=== PATIENT | female | born 1940 | race Caucasian/White ===

== ENCOUNTER 2023-05-28 10:09 | Observation (INO) | payer MEDICARE, SELFPAY ==
[2023-05-28 10:12] VITALS: BP 149/90; PULSE 72; RESP 14; TEMP 36.6; O2SAT 94; BMI 27.3
--- NOTE | 2023-05-28 10:14 | CT_ITS ---
STUDY: CTA HEAD AND NECK WITH CONTRAST REASON FOR EXAM: Female, 82 years old. Confusion -- PLEASE DICTATE NON CONTRAST BRAIN ALSO RADIATION DOSAGE (If Supplied By Facility): CTDIvol = ( 25.53 ) mGy, DLP = ( 1381.74 ) mGycm TECHNIQUE: CT angiography was performed with a multi-detector CT scanner. Data acquisition was obtained from the skull base through the vertex following intravenous administration of IV 100mL [id number]-[id number]. MIP images were reconstructed from the axial data set. Post-processing of the angiographic images was performed, with multiplanar reformation and 3D reconstruction. Individualized dose optimization techniques were used for this CT. COMPARISON: No relevant priors. FINDINGS: Normal bilateral petrous carotid arteries. There is calcified plaque formation of the right cavernous carotid artery, without a cross-sectional luminal stenosis. Normal left cavernous carotid artery with a normal supraclinoid bifurcation. Normal right A1 segments of the anterior cerebral artery. Normal left A1 segments of the anterior cerebral artery. Normal intact anterior communicating artery (ACOM). Normal bilateral A2 segments of the anterior cerebral arteries. Normal right M1 and M2 segments of the middle cerebral arteries, with a normal M1 bifurcation. Normal left M1 and M2 segments of the middle cerebral arteries, with a normal M1 bifurcation. Normal right posterior communicating artery (PCOM). Normal left posterior communicating artery (PCOM). Normal bilateral vertebral arteries. Normal basilar artery with a normal basilar bifurcation. The visualized bilateral superior cerebellar (SCA) arteries are normal. Normal bilateral P1, P2 and visualized P3 segments of the posterior cerebral arteries. There is no demonstrated aneurysm of the [place]. Cerebral atrophy. Hyperostosis frontalis interna. Decreased attenuation in the periventricular distribution suggestive of small vessel disease. AORTIC ARCH: There is atherosclerotic calcific plaque formation of the aortic arch and great vessels arising from the aortic arch, without a hemodynamically significant stenosis. There is a normal origin of the brachiocephalic, left common carotid, and left subclavian arteries. Atherosclerotic calcific plaque at the origin of the left subclavian artery and right brachiocephalic artery. RIGHT CAROTID ARTERIES: Normal right common carotid artery (CCA). Normal right common carotid bulb. Normal origin of the right internal carotid (ICA) artery without a hemodynamically significant stenosis. Normal visualized cervical portion of the right internal carotid artery. Normal origin of the right external carotid artery (ECA). LEFT CAROTID ARTERIES: Normal left common carotid artery (CCA). Normal left common carotid bulb. There is mild atherosclerotic plaque formation of the origin of the left internal carotid artery with less than 50% cross sectional diameter stenosis. Normal visualized cervical portion of the left internal carotid artery. Normal origin of the left external carotid artery (ECA). VERTEBRAL ARTERIES: Normal bilateral vertebral arteries. CT/CTA Head AND Neck W/ Contrast IMPRESSION: Minimal calcific plaque at the origin of the left internal carotid artery. Cerebral atrophy. Electronically Signed: Miky Carter MD at 11:34 EST ,
--- NOTE | 2023-05-28 10:14 | EKG12_ITS ---
Test Reason : CONFUSED Blood Pressure : / mmHG Vent. Rate : 070 BPM Atrial Rate : 070 BPM P-R Int : 174 ms QRS Dur : 070 ms QT Int : 420 ms P-R-T Axes : 033 -56 051 degrees QTc Int : 453 ms Normal sinus rhythm with sinus arrhythmia Left anterior fascicular block Abnormal ECG Confirmed by Sathya Bailey ([id number]), newspaper copy editor OPAL STOLL ([id number]) on 05/29/2023 8:00:00 AM Referred By: Confirmed By:Sathya Bailey
--- NOTE | 2023-05-28 10:15 | EX.ED.DYSGE1 ---
HPI History of Present Illness Chief Complaint: Confusion Detail of Chief Complaint: Confusion Informant: patient and family Narrative Narrative: Patient presents to the emergency department with complaint of confusion that patient noticed yesterday. Patient states that she is here because she does not know what she is doing. She has a hard time explaining how she is confused. She denies any focal weakness. She denies headache. She denies falls. She denies recent illness. Patient's family member spoke with her last night after not answering a text for 4 hours and she seemed relatively at baseline. Patient denies chest pain or shortness of breath. She denies abdominal pain. She denies vomiting or diarrhea. She denies urinary symptoms. Patient unable to answer what year it is or who the president is which is unusual per family member as patient likes politics. PFSH PFS Allergy/AdvReac Type Severity Reaction Status Date / Time No Known Allergies Allergy Verified 05/28/23 10:14 ROS ROS ED Review of Systems ROS Unobtainable: other Constitutional Constitutional ED: Reports lethargy; Denies chills, fever(s), sweats or weight loss Eyes Eyes: Denies blurry vision, change in vision or diplopia ENT ENT ED: Denies rhinorrhea or sore throat Cardiovascular Cardiovascular: Denies chest pain, orthopnea or racing heartbeat Respiratory/Chest Respiratory/Chest: Denies cough, dyspnea, dyspnea on exertion, orthopnea or sputum Gastrointestinal Gastrointestinal: Denies abdominal pain, diarrhea, nausea or vomiting Genitourinary Genitourinary ED: Denies dysuria, hematuria or urinary frequency Musculoskeletal Musculoskeletal: Denies arthralgias, back pain, myalgias or neck pain Integumentary Denies abscess, Abrasions or rash Neurologic Neurologic: Reports other Details: Confusion ; Denies headache(s) or weakness Psychiatric Psychiatric: Denies anxiety, depression or suicidal thoughts Endocrine Endocrinology: Denies polydipsia, polyphagia or polyuria Hematologic/Lymphatic Hematologic/Lymphatic: Denies easy bleeding, easy bruising or lymphadenopathy Allergic/Immunologic Allergic/Immunologic ED: Denies mouth swelling, tongue swelling or urticaria EXAM Physical Exam Const Vital Signs: 05/28/23 10:12 05/28/23 12:15 Temperature 97.9 F Temperature Source Temporal Pulse Rate 72 65 Respiratory Rate 14 16 Blood Pressure 149/90 H 169/58 H Blood Pressure Mean 109 95 Pulse Ox 94 94 Oxygen Delivery Method Room Air Room Air Positive well nourished and well developed General Appearance ED: well developed and NAD HEENT Reports TM's clear and moist mucous membranes normocephalic and atraumatic; Negative for trauma or tenderness Tympanic Membrane ED: Yes TM's clear Eyes PERRL and EOMs intact bilaterally General Eye ED: Negative for pale conjunctiva or scleral icterus Neck no lymphadenopathy, supple and no JVD General: Negative for tenderness Chest Wall inspection of chest normal and palpation of chest normal Chest: Negative for tenderness Resp normal respiratory effort and clear to auscultation bilaterally Effort and Inspection: Negative for respiratory distress or pain with movement Auscultation: Negative for rhonchi, wheezes or diminished lung sounds Cardio regular rate, regular rhythm, S1 normal heart sound, S2 normal heart sound and no murmurs Peripheral Pulses: pulses 2+ throughout GI normal to inspection, nondistended, normoactive bowel sounds, soft to palpation, non-tender, non-distended and no masses Back/Spine no CVA tenderness and no thoracic nor lumbar tenderness Extremity normal to inspection General Extremety ED: Negative for edema General Extremity: Negative for edema Neuro oriented x3, CN's II-XII intact bilaterally, no sensory deficits noted and gait normal Neuro Narrative: Patient with some confusion as she did not know her age but did give the correct birthdate. When asked who the president was she kept repeating the same answer. No focal deficits on exam noted. NIH stroke scale 0. Sensorium / Orientation: awake, alert, oriented to person, oriented to place and oriented to time Motor Exam: strength 5/5 throughout and strength abnormal Psych mental status grossly normal Skin no rashes or lesions noted and no wounds MDM MDM MDM Narrative Medical decision making narrative: Patient presents with mental status change that started yesterday. In the differential would be encephalopathy versus stroke versus drug reaction. Patient not taking any new medications and denies overdose. IV line established. CT scan of the brain without contrast and CTA head and neck obtained were essentially unremarkable. Patient not a thrombolytic candidate as symptoms started yesterday. Lab workup essentially unremarkable. Urinalysis was normal. Case discussed with hospitalist to evaluate patient for admission for mental status change. Will need to complete stroke workup. Lab Data Attestation: I reviewed the patient's lab results. Labs: Laboratory Results - last 24 hr 05/28/23 05/28/23 10:25 11:21 WBC 6.0 RBC 4.63 Hgb 13.4 Hct 40.8 MCV 88.1 MCH 28.9 MCHC 32.8 RDW Std Deviation 40.6 RDW Coeff of Abdirahman 12.7 Plt Count 300 MPV 10.5 Immature Gran % (Auto) 0.300 Neut % (Auto) 61.2 Lymph % (Auto) 28.4 Harlan % (Auto) 9.5 Eos % (Auto) 0.3 Baso % (Auto) 0.3 Absolute Neuts (auto) 3.7 Absolute Lymphs (auto) 1.70 Nucleated RBC % 0 Sodium 142 Potassium 4.0 Chloride 104 Carbon Dioxide 29.0 Anion Gap 9 BUN 17 Creatinine 1.19 H Estim Creat Clear Calc 35.52 Est GFR (MDRD) Af Amer 56 L Est GFR (MDRD) Non-Af 46 L BUN/Creatinine Ratio 14.3 Glucose 110 H Calcium 9.7 Troponin I High Sens 14 Urine Color Yellow Urine Clarity Clear Urine pH 8.0 Ur Specific Wall 1.015 Urine Protein 30 H Urine Glucose (UA) Normal Urine Ketones 5 H Urine Occult Blood Negative Urine Nitrite Negative Urine Bilirubin Negative Urine Urobilinogen Normal Ur Leukocyte Esterase 100 H Urine RBC 0 SEEN Urine WBC 0-5 SEEN Ur Squamous Epith Cells 0 SEEN Urine Bacteria RARE Urine Mucus 0 SEEN Radiography Diagnostic Testing: Clinical Impression(s) from Imaging Studies Head/Neck CTA 05/28/23 10:14 IMPRESSION: Minimal calcific plaque at the origin of the left internal carotid artery. Cerebral atrophy. Electronically Signed: Miky Carter MD at 11:34 EST , Chest X-Ray 05/28/23 10:50 IMPRESSION: 3.1 cm x 2.5 cm density in the medial left upper lobe as described. Correlation with a CT scan is recommended for further evaluation. Electronically Signed: Miky Carter MD at 11:08 EST , 1 view chest x-ray obtained interpreted by myself as questionable mass left upper lobe. Radiology in agreement. They recommended CT imaging to evaluate further. I did discuss case with hospitalist and advised them of findings as well. EKG Initial EKG: Attestation: I personally reviewed and interpreted this EKG as follows: Comments: Sinus rhythm with rate of 70 bpm with no acute ST segment changes Discharge Plan Dx/Rx/DC Orders Clinical Impression: History of cancer of uterus, Mass of left lung, Altered mental status Disposition Disposition: Acute Care Hospital [facility]
[2023-05-28 10:43] LABS: Absolute Neutrophil Count 3.7 X10^3/uL (2.0-7.7); Basophil# 0.02 X10^3/uL; Basophil% 0.3 % (0-1); Eosinophil# 0.02 X10^3/uL; Eosinophils% 0.3 % (0-5); Hematocrit 40.8 % (37-47); Hemoglobin 13.4 g/dL (12.0-15.0); Lymphocyte % 28.4 % (19-41); Mean Corp Hgb Conc 32.8 g/dL (32-36); Mean Corpuscular Hgb 28.9 pg (27.0-32.0); Mean Corpuscular Volume 88.1 fL (81-99); Mean Platelet Vol. 10.5 fl (6.2-12.0); Monocyte# 0.57 X10^3/uL; Monocyte% 9.5 % (0-10); NRBC Flagged by Analyzer 0 % (0-5); Neutrophil # 3.65 X10^3/uL (2.7-7.7); Neutrophil % 61.2 % (47-70); Platelet Count 300 K/mm3 (150-450); RBC Distribution Width CV 12.7 % (11.6-14.6); RBC Distribution Width SD 40.6 fl (35.1-43.9); Red Blood Count 4.63 M/mm3 (4.2-5.4)
--- NOTE | 2023-05-28 10:50 | RAD_ITS ---
STUDY: X-RAY CHEST REASON FOR EXAM: Female, 82 years old. Confusion TECHNIQUE: Single AP portable view of the chest. COMPARISON: None. FINDINGS: EKG electrodes are seen. There is a 3.1 cm x 2.5 cm density in the medial left upper lobe. This may represent focal infiltrate although CT is recommended for further evaluation. There is no demonstrated pleural abnormality. Normal size heart. Normal mediastinum and rayray. Normal visualized pulmonary arteries. Normal visualized aortic arch and descending thoracic aorta. Normal visualized thoracic spine. Normal visualized ribs, clavicles, and shoulders. Hiatal hernia. RAD/Chest 1 View (Portable) IMPRESSION: 3.1 cm x 2.5 cm density in the medial left upper lobe as described. Correlation with a CT scan is recommended for further evaluation. Electronically Signed: Miky Carter MD at 11:08 EST ,
[2023-05-28 10:53] LABS: Anion Gap 9 (5-15); BUN 17 mg/dL (7-18); BUN/Creat Ratio 14.3 RATIO (10-20); Calcium,Total 9.7 mg/dL (8.5-10.1); Chloride 104 mmol/L (98-107); Creatinine, Serum 1.19 mg/dL (0.55-1.02); EST Glomerular Filtration Rate 46 mL/min (>60); Est Glom Filt Rate - Afr Amer 56 mL/min (>60); Estimated Creatinine Clearance 35.52 ml/min; Glucose 110 mg/dL (74-106); Sodium Level 142 mmol/L (136-145); Troponin-I HS 14 pg/mL (3.0-54.0)
[2023-05-28 11:30] LABS: Mucous, Urine 0 SEEN /hpf (<or=2+); Red Blood Cells-Urine 0 SEEN /hpf (0-5); Squamous Epithelial Cells - UA 0 SEEN /hpf (5-10)
[2023-05-28] MEDS: 0.9% Normal Saline (1000mL) 1,000 ML 150 ML IV (11:39)
[2023-05-28 11:49] LABS: Color, Urine Yellow (Yellow); Glucose, Dipstick Normal (Normal); Ketone-Dipstick 5 mg/dl (Negative); Leukocyte Esterase-Dipstick 100 /ul (Negative); Nitrite-Dipstick Negative (Negative); Occult Blood-Urine Negative /ul (Negative); Protein-Dipstick 30 mg/dl (Negative); Specific Gravity, Urine 1.015 (1.002-1.030); Urine Bilirubin Dipstick Negative (Negative); Urine Clarity Clear (Clear); Urine Urobilinogen Normal (Normal)
[2023-05-28 12:04] LABS: Bacteria RARE /hpf (None Seen); White Blood Cells 0-5 SEEN /hpf (0-5)
[2023-05-28 12:15] VITALS: BP 169/58; PULSE 65; RESP 16; O2SAT 94
[2023-05-28 12:38] VITALS: BP 169/58; PULSE 65; RESP 16; TEMP 36.6; O2SAT 94
--- OUTSIDE RECORDS SUMMARY | 2023-05-28 12:42 | XMS RPT_ITS | CCD ---
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 Take 40 mg by mouth once daily. FAMILY HISTORY Problem Relation Age of Onset Cancer Mother breast Hypertension Mother Cancer Father prostate No Known Problems Maternal Grandmother No Known Problems Maternal Grandfather No Known Problems Paternal Grandmother No Known Problems Paternal Grandfather No Known Problems Child No Known Problems Child No Known Problems Child No Known Problems Child Social History Tobacco Use Smoking status: Former Packs/day: 0.50 Years: 20.00 Pack years: 10.00 Types: Cigarettes Quit date: 1988 Years since quittin.2 Smokeless tobacco: Never Tobacco comments: quit at age 49 Vaping Use Vaping Use: Never used Substance Use Topics Alcohol use: Yes Comment: socially Drug use: No PHYSICAL EXAM BP 124/76 Pulse 84 Resp 16 Ht 156.5 cm (5' 1.61 ) Wt 73.9 kg (163 lb) SpO2 95% BMI 30.19 kg/m? General Appearance: well appearing, in no acute distress, alert Pysch: mood and affect broad and appropriate Skin: Skin color, texture, turgor normal for age; Eyes: conjunctiva pink and moist, no icterus, sclera white, non-injected Neck: Thyroid normal size and symmetric without palpable nodules, No bruits, Neck supple, No adenopathy Lymph nodes: No supraclavicular lymphadenopathy Lungs: Lungs clear to auscultation. No wheezing, rhonchi, rales. Heart: RRR without murmur, gallop, or rubs. No ectopy Ext: no edema in LE bilaterally, good distal pulses Health maintenance reviewed with patient: DTAP,TDAP,TD(1 - Tdap) Never done SHINGRIX VACCINE(1 of 2) Never done BONE DENSITY Never done PNEUMOCOCCAL: 65+(2 - PPSV23 if available, else PCV20) due on 12/27/2019 ADVANCE DIRECTIVE DISCUSSION Never done DEPRESSION ASSESSMENT Never done DIABETES SCREEN due on 05/01/2025 INFLUENZA Completed COVID-19 VACCINE Completed DATA REVIEWED: Most recent labs Depression Screening 06/28/2022 PHQ-2 Score 0 Depression screening tool completed and reviewed. Based on score and interview, patient is not at risk for depression. Screening tool discussed with patient, and I recommended no further intervention at this time. ASSESSMENT/PLAN: 1. Primary hypertension - ICD9: 401.9, ICD10: I10 (primary diagnosis) - good control - Continue current medication(s) - Recommend home blood pressure monitoring, to bring results in on next visit - Recheck in 6 months, sooner should new symptoms or problems arise. - Goal of BP <130/80 2. Hyperlipidemia, unspecified hyperlipidemia type - ICD9: 272.4, ICD10: E78.5 - good control - Continue current medication. 3. Obesity, Class I, BMI 30-34.9 - ICD9: 278.00, ICD10: E66.9 - Discussed need for and benefit of weight loss BMI Readings from Last 1 Encounters: 06/28/22 : 30.19 kg/m? - Continue healthy diet consisting of fruits, vegetables and lean proteins. Reduce sugary drinks of artificial juices and sodas and replace with water and low calorie Crystal Light. Healthy Snack alternatives have been (more content not included)... [facility] 06-28-2022 Instructions Veena Bryant APRN.CNP - 06/28/2022 9:05 AM EDT Recombinant shingles vaccine (Shingrix) is recommended; 2 doses 2-6 months apart. Please read information, check with your insurance, and schedule vaccination at your local pharmacy. A prescription is not required. documented in this encounter [facility] 06-28-2022 History of Presen t illness Narrative CC: Patient presents with: Physical: New to establish HPI Citlaly Renae is a 81 year old female who presents today for above. Previous PCP Dr. Anna Rivera in [place], [place]. Moved here October 2021. HTN-Medication changes:No Taking all medications as prescribed: Yes Side effects: No Home BP's: No Last 3 Encounter BP Readings: Date: BP: 06/28/2022 136/82 12/27/2021 140/76 05/14/2019 125/63 Taking statin as prescribed. Denies side effects. Exercise: denies regular aerobic exercise in the winter. With the nicer weather will be more active and try to walk daily Diet: Watches diet for salt (salty snacks, added salt, processed frozen/canned foods), sugary/sweet snacks, unhealthy fats: Yes REVIEW OF SYSTEMS GENERAL: Negative for malaise, significant weight loss and fever HEENT: Negative for frequent or significant headaches, significant change in vision, significant vision problems, significant ear problems or hearing loss RESPIRATORY: Negative for cough, wheezing and shortness of breath CARDIOVASCULAR: Negative for chest pain, leg swelling and palpitations PSYCH: Negative for sleep disturbance, mood disorder and recent psychosocial stressors. PAST MEDICAL HISTORY Diagnosis Date Endometrial cancer (HCC) 10/10/2015 HTN (hypertension) Hypercholesteremia Uterine cancer (HCC) PAST SURGICAL HISTORY Procedure Laterality Date PAST SURGICAL HISTORY OF 2000 [facility] BSO TONSILLECTOMY HX ALLERGIES Penicillins MEDICATIONS Multivitamin capsule Take 1 capsule by mouth once daily. CALCIUM CARBONATE/VITAMIN D3 (CALCIUM 600 + D,3, ORAL) Take by mouth. amLODIPine (NORVASC) 5 mg tablet Take 5 mg by mouth once daily. atorvastatin (LIPITOR) 20 mg tablet Take 20 mg by mouth once daily. lisinopril (ZESTRIL, PRINIVIL) 40 mg tablet Take 40 mg by mouth once daily. FAMILY HISTORY Problem Relation Age of Onset Cancer Mother breast Hypertension Mother Cancer Father prostate No Known Problems Maternal Grandmother No Known Problems Maternal Grandfather No Known Problems Paternal Grandmother No Known Problems Paternal Grandfather No Known Problems Child No Known Problems Child No Known Problems Child No Known Problems Child Social History Tobacco Use Smoking status: Former Packs/day: 0.50 Years: 20.00 Pack years: 10.00 Types: Cigarettes Quit date: 1988 Years since quittin.2 Smokeless tobacco: Never Tobacco comments: quit at age 49 Vaping Use Vaping Use: Never used Substance Use Topics Alcohol use: Yes Comment: socially Drug use: No PHYSICAL EXAM BP 124/76 Pulse 84 Resp 16 Ht 156.5 cm (5' 1.61 ) Wt 73.9 kg (163 lb) SpO2 95% BMI 30.19 kg/m General Appearance: well appearing, in no acute distress, alert Pysch: mood and affect broad and appropriate Skin: Skin color, texture, turgor normal for age; Eyes: conjunctiva pink and moist, no icterus, sclera white, non-injected Neck: Thyroid normal size and symmetric without palpable nodules, No bruits, Neck supple, No adenopathy Lymph nodes: No supraclavicular lymphadenopathy Lungs: Lungs clear to auscultation. No wheezing, rhonchi, rales. Heart: RRR without murmur, gallop, or rubs. No ectopy Ext: no edema in LE bilaterally, good distal pulses Health maintenance reviewed with patient: DTAP,TDAP,TD(1 - Tdap) Never done SHINGRIX VACCINE(1 of 2) Never done BONE DENSITY Never done PNEUMOCOCCAL: 65+(2 - PPSV23 if available, else PCV20) due on 12/27/2019 ADVANCE DIRECTIVE DISCUSSION Never done DEPRESSION ASSESSMENT Never done DIABETES SCREEN due on 05/01/2025 INFLUENZA Completed COVID-19 VACCINE Completed DATA REVIEWED: Most recent labs Depression Screening 06/28/2022 PHQ-2 Score 0 Depression screening tool completed and reviewed. Based on score and interview, patient is not at risk for depression. Screening tool discussed with patient, and I recommended no further intervention at this time. ASSESSMENT/PLAN: 1. Primary hypertension - ICD9: 401.9, ICD10: I10 (primary diagnosis) - good control - Continue current medication(s) - Recommend home blood pressure monitoring, to bring results in on next visit - Recheck in 6 months, sooner should new symptoms or problems arise. - Goal of BP <130/80 2. Hyperlipidemia, unspecified hyperlipidemia type - ICD9: 272.4, ICD10: E78.5 - good control - Continue current medication. 3. Obesity, Class I, BMI 30-34.9 - ICD9: 278.00, ICD10: E66.9 - Discussed need for and benefit of weight loss BMI Readings from Last 1 Encounters: 06/28/22 : 30.19 kg/m - Continue healthy diet consisting of fruits, vegetables and lean proteins. Reduce sugary drinks of artificial juices and sodas and replace with water and low calorie Crystal Light. Healthy Snack alternatives have been discussed - Begin exercise or meaningful activity for 20 minutes at lest 3 times a day 4. Encounter for immunization - ICD9: V03.89, ICD10: Z23 - PNEUMOCOCCAL VACCINE (PREVNAR 20) Prescription instructions reviewed with patient as applicable. Potential red flag symptoms discussed with the patient. Reviewed appropriate action plan to take if red flag symptoms occur. Patient agreeable to treatment plan. Veena Bryant APRN.CNP documented in this encounter [facility] 12-27-2021 History of Presen t illness Narrative Patient presents with: Burn: Burn on left hand x 6 days HPI: Skin Lesion: Location: left thenar wrist Duration: splattered frying a filet [employer] last weekend. Pruritis/Pain: hurts to move but otherwise not painful Change: bandage placed 2 days ago is stuck to the burn Drainage/blister/pustule/ulcera tion: The skin came off like a skin tear immediately after the burn and has raw area. There is dry seepage on the dressing. Treatment: antibiotic ointment PAST MEDICAL HISTORY Diagnosis Date HTN (hypertension) Hypercholesteremia Uterine cancer (HCC) MEDICATIONS: alendronate (FOSAMAX) 70 mg tablet Take 70 mg by mouth one time a week. Multivitamin capsule Take 1 capsule by mouth once daily. CALCIUM CARBONATE/VITAMIN D3 (CALCIUM 600 + D,3, ORAL) Take by mouth. amLODIPine (NORVASC) 5 mg tablet Take 5 mg by mouth once daily. atorvastatin (LIPITOR) 20 mg tablet Take 20 mg by mouth once daily. lisinopril (ZESTRIL, PRINIVIL) 40 mg tablet Take 40 mg by mouth once daily. DOCOSAHEXANOIC ACID/EPA (FISH OIL ORAL) Take 2,400 mg by mouth. (Patient not taking: Reported on 12/27/2021) ALLERGIES: ALLERGIES No Known Allergies VITALS: BP 140/76 Pulse 81 Temp 36.2 C (97.1 F) Resp 21 Wt 75.7 kg (166 lb 12.8 oz) SpO2 95% BMI 30.31 kg/m PE: Pleasant, in no acute distress. SKIN: left flexor wrist/palm. 5cm area of moist base shallow ulceration and 1.5cm skin tear-like flap at the distal thenar end. No surrounding erythema or edema. Wound dressed with bacitracin on nonadhesive gauze pad. Coban used to secure the pad in place. ASSESSMENT/PLAN: 1. Partial thickness burn of left wrist, initial encounter - ICD9: 944.27, ICD10: T23.272A Should be able to treat successfully with home care. Change dressing daily similar to today. May wash with soap and water. Follow-up with signs of infection such as redness, pain, or swelling. Ajit Gutierrez MD documented in this encounter [facility] Primary hypertension- Primary Unspecified essential hypertension Hyperlipidemia, unspecified hyperlipidemia type Obesity, Class I, BMI 30-34.9 Obesity, unspecified Encounter for immunization Need for other specified prophylactic vaccination against single bacterial disease [facility] Diagnosis Medicare annual wellness visit, subsequent- Primary Routine general medical examination at a health care facility Primary hypertension Unspecified essential hypertension Hyperlipidemia, unspecified hyperlipidemia type History of colon polyps Personal history of colonic polyps Screening for osteoporosis Special screening for osteoporosis documented in this encounter [facility] Summary Purpose Family History No Family History Records FoundNo Family History Records Found Advance Directives No Advanced Directives Records FoundNo Advanced Directives Records Found Additional Source Comments INFORMATION SOURCE (unrecogn ized section and content) DATE CREATED AUTHOR AUTHOR'S ORGANIZ ATION 03/24/2023 [facility] Source Comments (unrecognize d section and content) In the event this informatio n is protected by the Federal Confidentiality of Alcohol and Drug Abuse Patient Records regulations: The Federal rules restrict any use of the information to criminally investigate or prosecute any alcohol or drug abuse patient.[facility] the event this information is protected by the Federal Confidentiality of Alcohol and Drug Abuse Patient Records regulations: The Federal rules restrict any use of the information to criminally investigate or prosecute any alcohol or drug abuse patient.[facility] the event this information is protected by the Federal Confidentiality of Alcohol and Drug Abuse Patient Records regulations: The Federal rules restrict any use of the information to criminally investigate or prosecute any alcohol or drug abuse patient.[facility] the event this information is protected by the Federal Confidentiality of Alcohol and Drug Abuse Patient Records regulations: The Federal rules restrict any use of the information to criminally investigate or prosecute any alcohol or drug abuse patient.[facility] Reason for Visit (unrecogniz ed section and content) Reason Comments Physical New to establish Reason Comments Medicare Wellness Exam Reason Comments Results Care Teams (unrecognized sec tion and content) Tiger Machine Operator Relationship Specialty Start Date End Date Francis Ren MD [address] [place] [address] PCP - General Internal Medicine 06/28/22 [employer] Machine Operator Relationship Specialty Start Date End Date Francis Ren MD [address] [place] [address] PCP - General Internal Medicine 06/28/22 [employer] Machine Operator Relationship Specialty Start Date End Date Francis Ren MD [address] [place] [address] PCP - General Internal Medicine 06/28/22 FOR RECORDS PERTAINING TO PATIENTS WHO ARE OR HAVE BEEN ENROLLED IN A CHEMICAL DEPENDENCY/SUBSTANCEABUSE PROGRAM, SOME INFORMATION MAY BE OMITTED. This clinical summary was aggregated from multiple sources. Caution should be exercised in using it in the provision of clinical care. This summary normalizes information from multiple sources, and as a consequence, information in this document may materially change the coding, format and clinical context of patient data. In addition, data may be omitted in some cases. CLINICAL DECISIONS SHOULD BE BASED ON THE PRIMARY CLINICAL RECORDS. [facility]. provides no warranty or guarantee of the accuracy or completeness of information in this document.
--- NOTE | 2023-05-28 13:28 | MRI_ITS ---
STUDY: MRI BRAIN WITH AND WITHOUT CONTRAST REASON FOR EXAM: Female, 82 years old. Confusion, possible stroke, possible metastatic dx TECHNIQUE: Standardized multiplanar fat and water weighted pulse sequences were obtained. IV 14ml clariscan was administered for the contrast portion of the examination. COMPARISON: None. FINDINGS: There is moderate cerebral atrophy with widening of the extra-axial spaces and ventricular dilatation. There are multiple white matter hyperintensities, distributed throughout the deep white matter tracts of the cerebral hemispheres, consistent with moderate chronic white matter ischemic changes. Within the left frontal parietal subcortical white matter scattered increased DWI signal with low ADC map consistent with acute to subacute infarct with corresponding high T2 signal within this region extending to the anterior mid insular ribbon with defect measuring approximately 3.7 x 1.7 cm axially. Normal T2* images of the brain without demonstrated susceptibility artifact. There is no demonstrated hemosiderin stain. Normal bilateral basal ganglia. Normal thalami. There is no extra-axial fluid accumulation. Normal flow voids within the major intracranial circulation suggesting patency by spin echo criteria. Normal venous enhancement. There is no enhancing intra-axial or extra-axial abnormality. Normal sella turcica, pituitary gland, infundibular stalk, optic chiasm and hypothalamus. Normal tectal plate and pineal gland. Normal midbrain, ana and medulla. Normal cerebellum. Normal basal cisterns. Normal bilateral temporal bones. Normal bilateral internal auditory canals. No demonstrated orbital abnormality, within the constraints of a routine brain study. Normal visualized paranasal sinuses. Normal calvarium and skull base. Normal visualized soft tissue structures. Normal visualized upper cervical spine. MRI/Brain W/WO Contrast IMPRESSION: 1. 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 Electronically Signed: Abdi Renae DO at 16:28 EST ,
[2023-05-28 13:30] VITALS: BMI 27.6
[2023-05-28 13:47] VITALS: BP 146/63; PULSE 67; RESP 16; TEMP 36.4; O2SAT 97
--- NOTE | 2023-05-28 16:59 | ECHOD_ITS ---
Reason For Study: TIA/CVA Procedure This was a 2D Doppler, Color Flow transthoracic echocardiogram. Exam performed portable in patient room. Left Ventricle Normal LV size. The estimated ejection fraction is 65 %. Unable to assess diastolic dysfunction. No regional wall motion abnormalities noted. Right Ventricle Normal RV size. Normal systolic function. Atria The left atrium is mildly enlarged. Normal right atrium. No doppler evidence for ASD. Bubble contrast study negative for right to left interatrial shunt. Mitral Valve There is moderate mitral annular calcification. There is no mitral valve stenosis. No mitral valve insufficiency. Tricuspid Valve There is no tricuspid stenosis. Pulmonary artery systolic pressure is 40 mmHg. Mild tricuspid valve insufficiency. Aortic Valve Trisinus/trileaflet aortic valve. There is no aortic stenosis. No aortic valve insufficiency. Pulmonic Valve There is no pulmonic valvular stenosis. No pulmonic valve insufficiency. Great Vessels Normal aortic root. Pericardium/Pleural No pericardial effusion. Medication Performed a rapid injection of agitated mix of 9 cc saline and 1cc air to assess for atrial septal defect. MMode/2D Measurements & Calculations LVIDd: 4.0 cm IVSd: 1.1 cm Ao root diam: 3.5 cm LVIDs: 2.8 cm LVPWd: 1.1 cm RVDd: 3.1 cm FS: 30.1 % LAV(MOD-bp): 64.8 ml LVAd ap4: 24.1 cm2 LVAd ap2: 25.0 cm2 LAV(MOD-bp) Indexed: 37.2 ml/m2 LVLd ap4: 6.9 cm LVLd ap2: 7.1 cm LAV(MOD-sp2): 54.3 ml EDV(MOD-sp4): 69.2 ml EDV(MOD-sp2): 72.5 ml LAV(MOD-sp4): 67.6 ml EDV(sp4-el): 71.7 ml EDV(sp2-el): 74.9 ml LVAs ap4: 14.6 cm2 LVAs ap2: 13.0 cm2 LVLs ap4: 6.2 cm LVLs ap2: 6.0 cm ESV(MOD-sp4): 29.4 ml ESV(MOD-sp2): 23.2 ml ESV(sp4-el): 29.0 ml ESV(sp2-el): 23.9 ml EF(MOD-sp4): 57.6 % EF(MOD-sp2): 68.0 % EF(sp4-el): 59.5 % SV(MOD-sp4): 39.9 ml SV(MOD-sp2): 49.3 ml SV(sp4-el): 42.7 ml LA A4 area: 21.6 cm2 LA dimension(2D): 3.9 cm RA A4 area: 15.0 cm2 TAPSE: 1.9 cm Time Measurements MV dec time: 0.25 sec Doppler Measurements & Calculations MV E max [place]: 91.3 cm/sec Lat Peak E' [place]: 7.3 cm/sec Med Peak E' [place]: 7.7 cm/sec MV A max [place]: 115.0 cm/sec E/E' lat: 12.5 E/E' med: 11.8 MV E/A: 0.79 MV V2 max: 120.9 cm/sec MV P1/2t max [place]: 111.7 cm/sec Ao V2 max: 148.9 cm/sec MV max P.8 mmHg MV P1/2t: 89.0 msec Ao max P.9 mmHg MV V2 mean: 67.9 cm/sec Ao V2 mean: 100.9 cm/sec MV mean P.1 mmHg MV dec slope: 367.8 cm/sec2 Ao mean P.6 mmHg MV V2 VTI: 37.4 cm MVA(P1/2t): 2.5 cm2 Ao V2 VTI: 37.3 cm AV (velocity ratio): 0.68 LV V1 max: 99.8 cm/sec PA V2 max: 94.2 cm/sec TR max [place]: 290.4 cm/sec LV V1 max P.0 mmHg PA V2 mean: 70.5 cm/sec TR max P.7 mmHg LV V1 mean P.2 mmHg LV V1 mean: 71.1 cm/sec LV V1 VTI: 25.5 cm ECHO/Echo Complete Interpretation Summary The estimated ejection fraction is 65 %. Unable to assess diastolic dysfunction. The left atrium is mildly enlarged. Ordering Physician: Teddy Quinones Referring Physician: Angie Alejandra Performed By: Cristina Catherine, JILLIAN, RVT
[2023-05-28 17:47] VITALS: BP 123/52; PULSE 70; RESP 16; TEMP 36.7; O2SAT 94
--- NOTE | 2023-05-28 18:12 | HP.PCM.HOS_ITS ---
HPI - General General Date of Admission: 05/28/23 Date of Service: 05/28/23 Chief Complaint: Altered mental status HPI Narrative YANNI BRADLEY, is a 82 F who presents to the emergency room at [facility] with a history of speech difficulty and confusion which started yesterday, patient's daughter noted that the patient tried to text her last night but the text was jumbled like she could not type the words. Patient was then called but told the daughter that she was feeling okay and not to worry. Today patient drove to the daughter's home and the daughter noticed that she had problems with conversation and was unable to finish sentences and brought her here for evaluation. CTA of the head and neck revealed minimal calcific plaque at the origin of the left internal carotid artery along with cerebral atrophy, CBC was unremarkable, chemistry profile revealed a creatinine of 1.19 but was otherwise normal. Urinalysis was unremarkable. Patient's chest x-ray showed a left upper lobe mass, this will need further delineation with a CT of the chest. Patient was oriented as to self and place but could not name the president. Patient will be placed in observation status on PCU, MRI will be performed, it is possible she could have had a stroke. [facility] Medical History (Updated 05/28/23 @ 13:51 by Tiffanie Rose) Endometrial cancer Home Medications amlodipine 5 mg tablet 5 mg PO DAILY 05/28/23 [History Last Taken Unknown] atorvastatin 20 mg tablet 20 mg PO DAILY 05/28/23 [History Last Taken Unknown] lisinopril 40 mg tablet 40 mg PO DAILY 05/28/23 [History Last Taken Unknown] Allergy/AdvReac Type Severity Reaction Status Date / Time No Known Allergies Allergy Verified 05/28/23 10:14 Family History no significant family his Surgical History (Updated 05/28/23 @ 13:51 by Tiffanie Rose) History of hysterectomy Social History Smoking Status: Never smoker ROS Constitutional Constitutional: Denies anorexia, change in weight, chills, fatigue, fever(s), malaise, night sweats or weakness Eyes Eyes: Denies blurry vision, change in vision, discharge from eye(s) or eye pain Cardiovascular Cardiovascular: Denies chest pain, claudication, dyspnea on exertion, edema, lightheadedness or palpitations Respiratory/Chest Respiratory/Chest: Denies cough, hemoptysis, shortness of breath at rest or shortness of breath with exertion Gastrointestinal Gastrointestinal: Denies abdominal pain, constipation, diarrhea, hematemesis, hematochezia, melena, nausea or vomiting Genitourinary Genitourinary: Denies difficulty urinating, dysuria, hematuria, urinary frequency, urinary hesitancy, urinary incontinence or urinary urgency Musculoskeletal Musculoskeletal: Denies back pain, joint pain, joint stiffness, joint swelling, myalgias or neck pain Neurologic Neurologic: Reports abnormal speech; Denies abnormal gait, dizziness, focal weakness, headache(s), loss of vision, numbness, other visual disturbances, paresthesias, syncope or tingling Psychiatric Psychiatric: Denies anxiety, cognitive impairment, depression, irritability, mood swings or suicidal ideation Endocrine Endocrinology: Denies change in body appearance, cold intolerance, excessive sweating, heat intolerance, polydipsia or polyuria Hematologic/Lymphatic Hematologic/Lymphatic: Denies none, anemia, easy bleeding, easy bruising or lymphadenopathy Allergic/Immunologic Allergic/Immunologic: Denies rhinitis, urticaria, eczemia or asthma Vital Signs Vital Signs Vital Signs: 05/28/23 10:12 05/28/23 12:15 05/28/23 12:38 Temperature 97.9 F 97.9 F Temperature Source Temporal Pulse Rate 72 65 65 Respiratory Rate 14 16 16 Blood Pressure 149/90 H 169/58 H 169/58 H Blood Pressure Mean 109 95 95 Blood Pressure Source Blood Pressure Position Blood Pressure Location Pulse Ox 94 94 94 Oxygen Delivery Method Room Air Room Air 05/28/23 13:47 05/28/23 13:45 Temperature 97.5 F L Temperature Source Oral Pulse Rate 67 Respiratory Rate 16 Blood Pressure 146/63 H Blood Pressure Mean 90 Blood Pressure Source Monitor Blood Pressure Position Semi-Fowlers Blood Pressure Location Left Arm Pulse Ox 97 Oxygen Delivery Method Room Air Room Air Weight Weight: 70.9 kg Body Mass Index (BMI) 27.6 Physical Exam Const alert, oriented x3, no apparent distress, average body habitus and healthy appearing General Appearance: cooperative, well kempt and well developed Orientation / Consciousness: awake, oriented to person, oriented to place and oriented to time HEENT normocephalic, head/scalp atraumatic, hearing grossly normal bilaterally and moist oral mucous membranes Eyes PERRL, EOMs intact bilaterally and conjunctivae normal Neck supple, no JVD, thyroid normal and no carotid bruits General: trachea midline Resp normal respiratory effort, no retractions, no use of accessory muscles and clear to auscultation bilaterally Auscultation: Negative for rales, rhonchi or wheezes Cardio regular rate, regular rhythm, S1 normal heart sound, S2 normal heart sound, no murmurs, no rub, no gallops and no clicks GI normal to inspection, nondistended, normoactive bowel sounds, soft to palpation, non-tender and non-distended Extremity no clubbing, cyanosis or edema Skin no rashes or lesions noted General Skin Exam: no breakdown Neuro oriented x3, CN's II-XII intact bilaterally, moves all extremities, no focal motor deficits and no sensory deficits noted Neuro Narrative: Patient has some expressive aphasia during conversation Sensorium / Orientation: awake and alert Motor Exam: strength 5/5 throughout Psych affect normal Results Lab / Micro Data 05/28/23 10:25 05/28/23 10:25 Labs: Laboratory Results - last 24 hr 05/28/23 10:25: WBC 6.0, RBC 4.63, Hgb 13.4, Hct 40.8, MCV 88.1, MCH 28.9, MCHC 32.8, RDW Std Deviation 40.6, RDW Coeff of Abdirahman 12.7, Plt Count 300, MPV 10.5, Immature Gran % (Auto) 0.300, Neut % (Auto) 61.2, Lymph % (Auto) 28.4, Stevens % (Auto) 9.5, Eos % (Auto) 0.3, Baso % (Auto) 0.3, Absolute Neuts (auto) 3.7, Absolute Lymphs (auto) 1.70, Nucleated RBC % 0, Sodium 142, Potassium 4.0, Chloride 104, Carbon Dioxide 29.0, Anion Gap 9, BUN 17, Creatinine 1.19 H, Estim Creat Clear Calc 35.52, Est GFR (MDRD) Af Amer 56 L, Est GFR (MDRD) Non-Af 46 L, BUN/Creatinine Ratio 14.3, Glucose 110 H, Calcium 9.7, Troponin I High Sens 14 05/28/23 11:21: Urine Color Yellow, Urine Clarity Clear, Urine pH 8.0, Ur Specific [place] 1.015, Urine Protein 30 H, Urine Glucose (UA) Normal, Urine Ketones 5 H, Urine Occult Blood Negative, Urine Nitrite Negative, Urine Bilirubin Negative, Urine Urobilinogen Normal, Ur Leukocyte Esterase 100 H, Urine RBC 0 SEEN, Urine WBC 0-5 SEEN, Ur Squamous Epith Cells 0 SEEN, Urine Bacteria RARE, Urine Mucus 0 SEEN Imaging Radiology Impression Head/Neck CTA 05/28/23 10:14 IMPRESSION: Minimal calcific plaque at the origin of the left internal carotid artery. Cerebral atrophy. Electronically Signed: Miky Carter MD at 11:34 EST , Chest X-Ray 05/28/23 10:50 IMPRESSION: 3.1 cm x 2.5 cm density in the medial left upper lobe as described. Correlation with a CT scan is recommended for further evaluation. Electronically Signed: Miky Carter MD at 11:08 EST , Brain MRI 05/28/23 13:28 IMPRESSION: 1. 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 Electronically Signed: Abdi Bradley DO at 16:28 EST , Assessment & Plan Assessment/Plan (1) Altered mental status: PLAN: Plan 1. Expressive aphasia-etiology unclear at this point, patient will be placed in observation status on PCU, an MRI of the brain with contrast will be obtained if it is positive she will need additional medications and testing. #2 left lung mass-patient will have a CT of the chest tomorrow with contrast, she received IV contrast today and so the test cannot be performed till tomorrow #3 essential hypertension-patient's blood pressure medications will be restarted tomorrow #4 hyperlipidemia-patient is on Lipitor Total clinical time spent by myself addressing the patient's medical issues, reviewing all of her data, and collaborating with patient's care team: 55 minutes Charges/Coding Visit Charges Inpatient E&M: 15616 Init Hosp L2
[2023-05-28 18:28] LABS: Bedside Glucose 102 mg/dL (74-106)
[2023-05-28] MEDS: Aspirin 81 MG TAB.CHEW PO (18:29)
[2023-05-28 21:47] VITALS: BP 146/59; PULSE 68; RESP 16; TEMP 36.6; O2SAT 93
[2023-05-28] MEDS: Heparin Injection (Vial) 5,000 UNIT/ML VIAL 5000 UNIT SC (21:51)
[2023-05-28] MEDS: Atorvastatin Calcium 80 MG Tablet PO (21:51)
[2023-05-29 03:47] VITALS: BP 124/51; PULSE 68; RESP 16; TEMP 36.6; O2SAT 92
[2023-05-29 04:45] VITALS: BMI 27.6
[2023-05-29 07:19] VITALS: O2SAT 92
[2023-05-29 08:52] LABS: Cholesterol 175 mg/dL (200); High Density Lipoprotein 89 mg/dL; Triglycerides 65 mg/dL; Very Low Density Lipoprotein 13 mg/dL (5-40)
[2023-05-29 10:00] VITALS: BP 116/57; PULSE 66; RESP 16; TEMP 36.6; O2SAT 95
[2023-05-29] MEDS: Aspirin 81 MG TAB.CHEW PO (10:13)
[2023-05-29] MEDS: amLODIPine 5 MG Tablet PO (10:13)
[2023-05-29] MEDS: Lisinopril 20 MG Tablet PO (10:13)
[2023-05-29] MEDS: Heparin Injection (Vial) 5,000 UNIT/ML VIAL 5000 UNIT SC (10:14)
--- NOTE | 2023-05-29 10:48 | CASEMGMT ---
Social Work SW spoke w/pt and Ninoska Piper in room. Pt confirms that iNnoska is her healthcare POA. SW asked Ninoska to bring in the documents as able and we can copy and place them on the chart. She states understanding. TAMRA Becerril
--- NOTE | 2023-05-29 11:00 | CT_ITS ---
STUDY: CT CHEST WITH CONTRAST REASON FOR EXAM: Female, 82 years old. Abnormal chest x-ray RADIATION DOSAGE (If Supplied By Facility): CTDIvol = ( 9.27 ) mGy, DLP = ( 302.55 ) mGycm TECHNIQUE: Transaxial imaging was performed following intravenous administration of IV 100mL Isovue-300. Multiplanar coronal and sagittal images were reformatted. Individualized dose optimization techniques were used for this CT. COMPARISON: Comparison is made with prior chest radiograph dated May 28, 2023. FINDINGS: CHEST There is a 1.5 cm x 1.4 cm solid nodule in the posterior medial aspect of the left upper lobe as seen on axial image #38 and coronal image #161. A neoplastic process should be ruled out. There is also evidence of a 1.1 cm x 0.5 cm irregular nodule in the posterior medial aspect of the right lower lobe. A 0.5 cm nodule is also seen in posterior aspect of the right middle lobe as seen on axial image #79 and 8.6 cm nodule in the peripheral lateral aspect of the left lower lobe as seen on axial image #79. There is no demonstrated pleural abnormality. Normal heart and pericardium. Normal mediastinum. Normal hilar regions. Normal unenhanced pulmonary arteries. Normal aorta arch and descending thoracic aorta. There are multi-level degenerative changes of the thoracic spine. Increased kyphosis. Large hiatal hernia. Hyperplasia of the left adrenal gland. 1.8 cm cyst in the lateral aspect of the right kidney. CT/Chest WITH Contrast IMPRESSION: Multiple bilateral pulmonary nodules as described. Metastatic disease should be ruled out. Large hiatal hernia. Electronically Signed: Miky Carter MD at 12:53 EST ,
--- NOTE | 2023-05-29 11:53 | CASEMGMT ---
RN?CM?PRODUCE SHIPPER?CM?to room to meet with patient for initial transition planning/care coordination?assessment.?RN?CM?introduced self and role at [facility].? Pt voices understanding and consents to?assessment?at this time.? Pt resting in bed in no distress at this time.? Pt is alert at this time and noted w/expressive aphasia. Dtr, Ninoska, @ bedside. She states she also has noticed pt is having some memory issues/forgetful since having the stroke. Care providers, pharmacy, and demographics verified/updated at this time w/both pt and daughter. PCP: Dr Alejandra Specialists: none Preferred Pharmacy: [facility] Insurance: [facility] Prescription Benefit:?yes LNOK: daughter, Ninoska. DESI, Baron Living Arrangements: Lives alone in one-story apartment w/one small step to enter. Completely independent w/ADL's and IADL's prior to stroke. Transportation:?Pt, daughter DME: ? Denies using any DME and denies needs.? HHC/SNF: no Hx of either. Discussed options of RU/SNF, vs HHC, vs OP speech therapy. Pt and daughter both agree prefer for pt to discharge home, and most likely will stay w/dtr initially. Daughter states she works from home and can be w/pt 04/11. They would like pt to do OP ST therapy, as pt is not homebound. They are not sure what OP location yet and were made aware a script can be provided and they can take to any location of choice. They voice understanding. DIANA Andarde RN CM, made aware. PT/OT and ST evals are pending and they were made aware if any further recommendations are made, this can also be discussed. CM?to follow for any further discharge planning/needs.? Pt and dtr voice no further concerns/needs at this time.? Advised them to ask for?CM?if any further questions/concerns/needs arise.? They voice understanding. PLAN:??Home w/daughter and OP ST. PT/OT and ST evals pending. CM to follow. Corby STERLINGN?RN?CM
--- NOTE | 2023-05-29 12:00 | CASEMGMT ---
Met with?patient and her daughter to complete REHMAN form. REHMAN form explained to both who voiced understanding and signed form. Original form placed in pt?s chart and copy provided to?patient. Kina Guillaume, Discharge Planning Asst
[2023-05-29 14:00] VITALS: BP 129/61; PULSE 62; RESP 16; TEMP 36.8; O2SAT 96
[2023-05-29 15:31] VITALS: BMI 27.6
--- NOTE | 2023-05-29 15:38 | PCM.DC ---
Discharge Instructions Diet Discharge Diet: No restrictions Activity Discharge Activity: Return to Normal Activity Weight Bearing Status: Full weight bearing Follow Up Care Test Results: Test results from this visit will be discussed in further detail at your follow-up appointment, if applicable. Discharge Plan Admission Admit Date/Time: 05/28/23 12:40 Primary Reason for Your Visit: ischemic stroke Attending Provider: Teddy Quinones Primary Care Provider: Angie Alejandra Consulting Providers: Jamil Peterson; Zaina Garcia; Celena Ambriz; Paty Valenzuela; Geraldine Bean; Radu Mcdonough; Shweta Mcgowan; Sebastien Abreu; Timo Adame; Taylor Rutherford; Alex Miller; Stephanie Del Toro; Bob Kumar; Kimberlyn Merrill; Raulito Benjamin; Pippa Bishop; Levi Rendon; Cyndi Fraga; Melany Escudero; Jean Marie Petersen; Duy Roldan; James Casillas; London Matamoros; Karis Calixto; Kirk Lozano; Omayra Ellis; Kacie Severino; Alec Briggs; Medardo Turcios; Jadon Clark; Charan Carlos Discharge Orders/Prescriptions Prescriptions: New atorvastatin 40 mg tablet 40 mg PO DAILY Qty: 30 0RF aspirin 81 mg Tablet,Chewable 81 mg PO BREAKFAST Qty: 0 0RF lisinopril 20 mg Tablet 20 mg PO DAILY Qty: 0 0RF Continued amlodipine 5 mg tablet 5 mg PO DAILY Changed lisinopril 40 mg tablet 20 mg PO DAILY Qty: 1 0RF Discontinued atorvastatin 20 mg tablet 20 mg PO DAILY Referrals / Follow Up: Angie Alejandra MD [Primary Care Provider] - Within 2 Weeks Disposition Disposition (needs filled in before D/C Order can be placed): Home, Self Care
--- NOTE | 2023-05-29 16:26 | CASEMGMT ---
VINAY WILLIAM updated by ST that patient will need outpatient ST at discharge. Script received and provided to daughter. Patient and daughter had no further questions or concerns.
--- NOTE | 2023-05-29 16:32 | DS.PCM_ITS ---
Providers Date of Admission: 05/28/23 Date of Discharge: 05/29/23 Primary Care Physician: Dr. Angie Alejandra MD Consultations 05/28/23 17:09 neuro [Consult: Tele-Neurology] Routine Consulting Provider: [facility] Reason for Consult: CVA EMERGENT Consult: No Notified: Yes Date Notified: 05/28/23 Time Notified: 18:13 Method of Notification: Answering Service Comments:: patient can be seen 05/29/23 Nursing Unit Staff Notify [facility] of Tele-Neurology Consult: Yes 05/29/23 15:46 Consult: Stage Electrician Helper / Pulmonary Medicine Routine Consulting Provider: [facility]/Pulmonary Med Reason for Consult: pulmonary nodules EMERGENT Consult: No Notified: Yes Date Notified: 05/29/23 Time Notified: 15:46 Method of Notification: Verbal Reason For Visit: MENTAL STATUS CHANGE Diagnosis Discharge Diagnosis (1) Altered mental status: Status: Acute Code(s): R41.82 - Altered mental status, unspecified Plan 1. Acute left anterior MCA infarct #2 left lung mass-patient will have a CT of the chest tomorrow with contrast, she received IV contrast today and so the test cannot be performed till tomorrow #3 essential hypertension-patient's blood pressure medications will be restarted tomorrow #4 hyperlipidemia-patient is on Lipitor Total clinical time spent by myself addressing the patient's medical issues, reviewing all of her data, and collaborating with patient's care team: 55 minutes Medications at Discharge Home Medications amlodipine 5 mg tablet 5 mg PO DAILY 05/28/23 aspirin 81 mg chewable tablet 81 mg PO BREAKFAST #0 tabs 05/29/23 atorvastatin 40 mg tablet 40 mg PO DAILY #30 tabs 05/29/23 lisinopril 20 mg tablet 20 mg PO DAILY #0 tabs 05/29/23 lisinopril 40 mg tablet 20 mg (1/2 x 40 mg) PO DAILY #1 TAB 05/29/23 Hospital Course Operations None Procedures 2-D Echocardiogram Summary of Care Provided Minutes Spent on Discharge: 31 Hospital Course: This 82-year-old white female presented to the emergency room at [facility] with a history of speech difficulty and confusion which started the day before. CTA of the head of the neck was obtained which revealed minimal calcific plaque at the origin of the left internal carotid artery along with cerebral atrophy. CBC was unremarkable, chest x-ray showed a left upper lobe mass. Patient was placed in observation status on PCU, MRI of the brain revealed an acute infarct in the distribution of the left anterior MCA. PT and OT as well as speech therapy saw the patient. Patient underwent an echocardiogram which showed no evidence of right to left shunt or thrombus. Patient underwent a CT of her chest which showed multiple nodules in both lungs indicative of metastatic disease. This was discussed with the patient and her daughter, patient opted not to investigate this further, she had had a history of uterine cancer twice and she states she was at peace with everything and did not want any more treatment for possible cancer. I asked her to consider this as an outpatient and get back with her PCP. On 05/29/2023, patient was seen and examined: On examination she appeared in good health and spirits, she does not appear to be in any distress. Vital signs as documented. Skin warm and dry and without overt rashes. Neck without JVD, thyroid appears normal, trachea is midline, neck is supple. Lungs clear, normal air movement was noted. Heart exam notable for regular rhythm, normal sounds and absence of murmurs, rubs or gallops. Abdomen unremarkable and without evidence of organomegaly, masses, or abdominal aortic enlargement, bowel sounds are present in all 4 quadrants, no abdominal tenderness was noted. Extremities nonedematous, no cyanosis was noted, no clubbing was noted. Neuro: Cranial nerves II through XII are grossly intact, no focal motor deficits were noted, sensation to light touch and pinprick is intact, motor exam 5/5 throughout. Psych: Patient is alert and oriented x3, she does not appear anxious or depressed, she does not appear agitated. Patient was discharged home in stable condition on 05/29/2023 Weight / BMI Weight Weight: 70.9 kg Body Mass Index (BMI) 27.6 ABG / Lab / Microbiology Data 05/28/23 10:25 05/28/23 10:25 Laboratory: Laboratory Results - last 24 hr 05/28/23 10:10: POC Glucose 102 05/29/23 07:10: Triglycerides 65, Cholesterol 175, LDL Cholesterol 73, VLDL Cholesterol 13, HDL Cholesterol 89 Radiography Diagnostic Testing: Radiology Impression Echocardiogram 05/28/23 16:59 Interpretation Summary The estimated ejection fraction is 65 %. Unable to assess diastolic dysfunction. The left atrium is mildly enlarged. Ordering Physician: Teddy Quinones Referring Physician: Angie Alejandra Performed By: Cristina Catherine, JILLIAN, RVT Chest CT 05/29/23 11:00 IMPRESSION: Multiple bilateral pulmonary nodules as described. Metastatic disease should be ruled out. Large hiatal hernia. Electronically Signed: Miky Carter MD at 12:53 EST Reading Location ID and State: [address] [place] [address] , Service support , D/C Instructions Discharge Diet: No restrictions Weight Bearing Status: Full weight bearing Meaningful Use Info Meaningful Use Diagnoses (Choose all that apply): Ischemic CVA CVA Therapy Assessed for PT,OT and/or ST?: Yes Ischemic Stroke Antithrombotic order at d/c?: Yes Dx of Atrial fib/flutter?: No Anticoagulant at discharge?: No Reason anticoagulant not ordered: Treatment not Indicated Statins at discharge?: Yes Primary Dx Acute Ischemic CVA?: Yes IV thrombolytic ordered during stay?: No Reason IV thrombolytic not ordered: Treatment not Indicated Discharge Plan Admission Admit Date/Time: 05/28/23 12:40 Primary Reason for Your Visit: ischemic stroke Attending Provider: Teddy Quinones Primary Care Provider: Angie Alejandra Consulting Providers: Jamil Peterson; Zaina Garcia; Celena Ambriz; Paty Valenzuela; Geraldine Bean; Radu Mcdonough; Shweta Mcgowan; Sebastien Abreu; Timo Adame; Taylor Rutherford; Alex Miller; Stephanie Del Toro; Bob Kumar; Kimberlyn Merrill; Raulito Benjamin; Pippa Bishop; Levi Rendon; Cyndi Fraga; Melany Escudero Discharge Orders/Prescriptions Prescriptions: New atorvastatin 40 mg tablet 40 mg PO DAILY Qty: 30 0RF aspirin 81 mg Tablet,Chewable 81 mg PO BREAKFAST Qty: 0 0RF lisinopril 20 mg Tablet 20 mg PO DAILY Qty: 0 0RF Continued amlodipine 5 mg tablet 5 mg PO DAILY Changed lisinopril 40 mg tablet 20 mg PO DAILY Qty: 1 0RF Discontinued atorvastatin 20 mg tablet 20 mg PO DAILY Referrals / Follow Up: Angie Alejandra MD [Primary Care Provider] - Within 2 Weeks Disposition Disposition (needs filled in before D/C Order can be placed): Home, Self Care Charges/Coding Visit Charges Inpatient E&M: 00116 Disch Hosp >30min
--- NOTE | 2023-05-29 21:44 | CON.PCM.NE_ITS ---
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 daughter at bed side reported that 3 days before the admission the pt sent her a text message that was nonsensical and gibberish. she did not want to go to the ED, in the next few days she cont to have difficulty naming w hich has been slowly getting better. [facility] Medical History (Updated 05/28/23 @ 13:51 by Tiffanie Rose) Endometrial cancer Home Medications amlodipine 5 mg tablet 5 mg PO DAILY 05/28/23 [History Last Taken Unknown] aspirin 81 mg chewable tablet 81 mg PO BREAKFAST #0 tabs 05/29/23 [Rx Last Taken Unknown] atorvastatin 40 mg tablet 40 mg PO DAILY #30 tabs 05/29/23 [Rx Last Taken Unknown] lisinopril 20 mg tablet 20 mg PO DAILY #0 tabs 05/29/23 [Rx Last Taken Unknown] lisinopril 40 mg tablet 20 mg (1/2 x 40 mg) PO DAILY #1 TAB 05/29/23 [Rx Last Taken Unknown] Allergy/AdvReac Type Severity Reaction Status Date / Time No Known Allergies Allergy Verified 05/28/23 10:14 Family History no significant family his Surgical History (Updated 05/28/23 @ 13:51 by Tiffanie Rose) History of hysterectomy Social History Smoking Status: Never smoker Vital Signs Vital Signs Vital Signs: 05/28/23 21:47 05/29/23 03:47 05/29/23 08:43 Temperature 98 F 98 F Temperature Source Oral Axillary Pulse Rate 68 68 Respiratory Rate 16 16 Respiratory Effort Normal Non-Labored Respiratory Depth Normal Respiratory Pattern Normal Blood Pressure 146/59 H 124/51 H Blood Pressure Mean 88 75 Blood Pressure Source Monitor Monitor Blood Pressure Position Semi-Fowlers Semi-Fowlers Blood Pressure Location Left Arm Left Arm Pulse Ox 93 92 Oxygen Delivery Method Room Air Room Air 05/29/23 10:00 05/29/23 07:19 05/29/23 14:00 Temperature 97.9 F 98.2 F Temperature Source Temporal Oral Pulse Rate 66 62 Respiratory Rate 16 16 Respiratory Effort Respiratory Depth Respiratory Pattern Blood Pressure 116/57 L 129/61 H Blood Pressure Mean 76 83 Blood Pressure Source Monitor Monitor Blood Pressure Position Semi-Fowlers Semi-Fowlers Blood Pressure Location Left Arm Left Arm Pulse Ox 95 92 96 Oxygen Delivery Method Room Air Room Air Room Air 05/29/23 14:00 Temperature Temperature Source Pulse Rate Respiratory Rate Respiratory Effort Normal Non-Labored Respiratory Depth Normal Respiratory Pattern Normal Blood Pressure Blood Pressure Mean Blood Pressure Source Blood Pressure Position Blood Pressure Location Pulse Ox Oxygen Delivery Method Weight Weight: 70.9 kg Body Mass Index (BMI) 27.6 EEG Results Procedure Details EEG Procedure Details: YANNI BRADLEY is a 82 year old F with a past medical history of , who presents for evaluation of Electroencephalogram on DATE at TIME NIHSS NIHSS Nursing Documentation NIHSS Nursing Documentation: NIHSS: Ischemic Stroke/TIA Start: 05/28/23 13:28 Freq: [id number] Status: Discharge Protocol: Activity Type Activity Date Activity User E-sign Co-sign Detail Recorded Client Recorded Date Recorded By Document 05/29/23 14:00 Desktop 05/29/23 14:49 05/29/23 14:00 NIH Stroke Scale [NIHSS] A score of 0 is normal or asymptomatic . Total possible score is 42. Inpatient: RN or Physician to activate a stroke alert for onset of new stroke symptoms or with NIHSS increase >/= 3 points. Following change in neurological status, NIHSS will be performed per physician order or more frequently PRN. -1a. Level of Consciousness Alert; keenly responsive -1b. LOC Questions Answers one question correctly. -1c. LOC Commands Performs both tasks correctly . -2. Best Gaze Normal -3. Visual No visual loss -4. Facial Palsy Normal symmetrical movements -5a. Left Arm No drift; arm holds 90 (or 45 ) degrees for full 10 seconds -5b. Right Arm No drift; arm holds 90 (or 45 ) degrees for full 10 seconds -6a. Left Leg No drift; leg holds 30-degree position for full 5 seconds -6b. Right Leg No drift; leg holds 30-degree position for full 5 seconds -7. Limb Ataxia Absent -8. Sensory Normal; no sensory loss -9. Best Language Mild-to- moderate aphasia; -10. Dysarthria Mild-to- moderate dysarthria; -11. Extinction and Inattention No abnormality -Total 3 Query Text:A score of 0 is normal or asymptomatic. Total possible score is 42 . ED: Notify Physician for NIHSS increase by > / = 3 points. Inpatient: RN or Physician to activate a stroke alert for NIHSS increase of > / = 3 points. Coma Scale [Assess] -Eye Opening Spontaneous -Motor Obeys Commands -Verbal Oriented [Total] -Coma Scale Total 15 Physical Exam Neuro Neuro Narrative: she is awake alert oriented x3 following commands, PERRLA,EMOI, face symmetric, move all ext antigravity no drift, able to name and repeat and follows commands(daughter reports continuing difficulty with naming) Lab / Micro Data 05/28/23 10:25 05/28/23 10:25 Labs: Laboratory Results - last 24 hr 05/29/23 07:10: Triglycerides 65, Cholesterol 175, LDL Cholesterol 73, VLDL Cholesterol 13, HDL Cholesterol 89 Imaging Radiology Impression Echocardiogram 05/28/23 16:59 Interpretation Summary The estimated ejection fraction is 65 %. Unable to assess diastolic dysfunction. The left atrium is mildly enlarged. Ordering Physician: Teddy Quinones Referring Physician: Angie Alejandra Performed By: Cristina Catherine, JILLIAN, RVT Chest CT 05/29/23 11:00 IMPRESSION: Multiple bilateral pulmonary nodules as described. Metastatic disease should be ruled out. Large hiatal hernia. Electronically Signed: Miky Carter MD at 12:53 EST ,
== END 2023-05-29 16:31 | disposition home or self-care (01) ==
LOC: ED 12:23 → PCU 12:50
PROVIDERS: Admitting Provider Internal Medicine; Emergency Provider Emergency Medicine; PCP Family Medicine; Visit Provider Internal Medicine
DX: I63.512 Cerebral infarction due to unspecified occlusion or stenosis of left middle cerebral artery (principal); G31.9 Degenerative disease of nervous system, unspecified; E78.5 Hyperlipidemia, unspecified; I10 Essential (primary) hypertension; R91.8 Other nonspecific abnormal finding of lung field; Z79.899 Other long term (current) drug therapy; Z79.82 Long term (current) use of aspirin; R47.01 Aphasia
CPT/HCPCS: 36415; 70496; 70498; 70553; 71045; 71260; 80048; 80061; 81001; 82962; 84484; 85025; 92523; 93005; 93306; 96360; 96361; 96372; 97162; 97166; 99221; 99285; A9575; Q9957; Q9967; A4216; G0378

== ENCOUNTER 2023-06-30 08:46 | Outpatient (CLI) | payer MEDICARE, SELFPAY ==
[2023-06-30] VITALS (16 sets, daily range): BP systolic 104–157; BP diastolic 52–103; PULSE 61–69; RESP 12–18; TEMP 36.2; O2SAT 95–100; BMI 29.2
--- NOTE | 2023-06-30 | ASPIGT_PTH ---
PATIENT: YANNI BRADLEY LOC: CT U#:[id number] AGE/SX: 82/F ROOM: RE06/30/[address]: Dr. Angie Alejandra MD : 1940 BED: DIS: 06/30/2023 SPEC #: [id number] RECD: 06/30/23 10:37 STATUS: NICHOLE RECaterina #: [id number] MEL: 06/30/23 00:[address]: Angie Alejandra DEPT: SURGICAL PATHOLOGY RECD BY: Kiko Mary ENTERED: 06/30/23 10:37 SP TYPE: ASP RAD OTHR DR: Lisa Holden, BLIND CLEANER-C Tissues: Lung, NOS Procedures: FNA Specimen Adequacy Special Stain Group II Surgery Specimen Level IV Imprint (control) HEADER OPERATION: CT guided right lung biopsy PRE-OP DIAGNOSIS: Lung nodules TISSUE SUBMITTED: Right lung 20-gauge x5 MICROSCOPIC DIAGNOSIS Right lung CT guided, biopsy; Minute fragments of lung parenchymal tissue, negative for malignancy. See comment / 07/01/2023 COMMENT The specimen is evaluated at the time of biopsy by Dr. Sin. Immediate Evaluation = Negative for malignant cells. Correlation with clinical, radiologic findings and appropriate follow up are necessary. This case has been reviewed in consultation with Dr. Meza who concurs with the above diagnosis. MICROSCOPIC DESCRIPTION Slides are reviewed. GROSS DESCRIPTION Received in fixative is one container labeled with the patient's name and designated Right lung. The specimen consists of multiple minute fragments of light frias soft tissue that in aggregate measure <0.2 x 0.1 x 0.1 cm. The specimen is totally submitted in one cassette. Three touch imprints are prepared at the time of core biopsy. / 06/30/2023 TC:5 CPT: 45947,34959
[2023-06-30 09:08] LABS: Platelet Count 276 K/mm3 (150-450)
[2023-06-30 09:30] LABS: International Normalized Ratio 1.1; Prothrombin Time (Protime)PT. 14.1 SECONDS (11.7-14.9)
[2023-06-30 09:31] LABS: Partial Thromboplast Time 27.1 Seconds (24.1-36.2)
[2023-06-30] MEDS: 0.9% Normal Saline (250mL Bag) 250 ML 15 ML IV (09:54)
[2023-06-30] MEDS: Midazolam 2 MG/2 ML Syringe IV ×2 (09:54→10:05)
[2023-06-30] MEDS: fentaNYL 100 MCG/2 ML Ampul IV (10:04)
[2023-06-30] MEDS: Lidocaine 2% (20 ml mdv) 20 ML Vial INFILT (10:08)
--- NOTE | 2023-06-30 10:15 | RAD_ITS ---
STUDY: X-RAY CHEST REASON FOR EXAM: Female, 82 years old. Immediately post lung biopsy -- Immediately post lung biopsy TECHNIQUE: AP inspiration and expiration views. COMPARISON: Comparison is made with prior study dated May 28, 2023. FINDINGS: EKG electrodes are seen. The patient is status post right lung biopsy. No evidence of pneumothorax. Large hiatal hernia. RAD/Chest Insp/Exp 2 View IMPRESSION: No evidence of pneumothorax on the immediate post right lung biopsy radiographs. Electronically Signed: Miky Carter MD at 10:40 EDT ,
--- NOTE | 2023-06-30 10:37 | PRO.PCM_ITS ---
Procedure Report Date of Procedure: 06/30/23 Assessment & Plan Assessment/Plan (1) Other nonspecific abnormal finding of lung field: PLAN: PROCEDURE: CT GUIDED CORE NEEDLE LUNG BIOPSY ORDERING PROVIDER: Dr. Alejandra INDICATION: Female, 82 years old. [ ] PROVIDER: PERLA Calvo CONSENT: Written informed consent was obtained having explained the risks, benefits and alternatives in detail with the [ ] who accepted the risks and agreed to proceed. Laboratory review and clinical assessment was performed. PRE-PROCEDURE SEDATION ASSESSMENT: Current history and physical dictated by referring physician and reviewed. No clinical changes since date of exam. Patient has a Mallampati Score of Class [ ] and ASA Class of [ ]. PROCEDURAL SEDATION PROTOCOL: The Drugs used were: [ ] mg Versed, IV, and [ ] mcg Fentanyl, IV. The sedation time was: [ ] minutes, starting at [ ] and terminated at [ ]. The procedural sedation protocol was independently monitored by the department nurse. RADIATION DOSAGE (If Supplied By Facility): CTDIvol = [ ] mGy, DLP = [ ] mGycm Individualized dose optimization techniques were used for this CT. TECHNIQUE: The patient was placed in a [ ] position. A noncontrast CT was performed to localize the lesion in the [ ]. The skin surface was prepped and draped in a sterile fashion. [ ]% lidocaine was used for local anesthesia. Using CT guidance, a [ ]-gauge coaxial biopsy device was advanced to the periphery of the lesion. A total of [ ] core specimens were obtained. Specimens were microscopically reviewed by pathology in the CT suite and placed in formalin solution. BioSentry tract sealant system was deployed at the biopsy site, and the biopsy needle was removed. A sterile occlusive dressing was applied to the biopsy site. The patient tolerated the procedure well. An immediate chest xray was ordered, per protocol. A negative biopsy does not exclude malignancy. Further imaging or clinical followup based on patient condition and degree of clinical suspicion for malignancy. Suggest rebiopsy, if biopsy results do not match with clinical scenario. IMPRESSION: 1. CT directed core needle biopsy of [ ] nodule using CT image guidance with image documentation as described. Pathology results are pending. 2. Procedural Sedation protocol utilized with independent monitoring by the department nurse.
--- NOTE | 2023-06-30 10:37 | PCM.OP.PRO ---
Procedure Report Date of Procedure: 06/30/23 Assessment & Plan Assessment/Plan (1) Other nonspecific abnormal finding of lung field: PLAN: PROCEDURE: CT GUIDED CORE NEEDLE LUNG BIOPSY ORDERING PROVIDER: Dr. Alejandra INDICATION: Female, 82 years old. Pulmonary nodule in the upper aspect of the right lower lobe. PROVIDER: PERLA Calvo CONSENT: Written informed consent was obtained having explained the risks, benefits and alternatives in detail with the patient who accepted the risks and agreed to proceed. Laboratory review and clinical assessment was performed. PRE-PROCEDURE SEDATION ASSESSMENT: Current history and physical dictated by referring physician and reviewed. No clinical changes since date of exam. Patient has an ASA Class of 2. PROCEDURAL SEDATION PROTOCOL: The Drugs used were: 2 mg Versed, IV, and 50 mcg Fentanyl, IV. The sedation time was: 24 minutes, starting at 9:54 AM and terminated at 10:18 AM. The procedural sedation protocol was independently monitored by the department nurse. RADIATION DOSAGE (If Supplied By Facility): CTDIvol = 17.99 mGy, DLP = 395.34 mGycm Individualized dose optimization techniques were used for this CT. TECHNIQUE: The patient was placed in a prone position. A noncontrast CT was performed to localize the lesion in the right lower lobe. The skin surface was prepped and draped in a sterile fashion. 2% lidocaine was used for local anesthesia. Using CT guidance, a 20-gauge coaxial biopsy device was advanced to the periphery of the lesion. A total of 5 core specimens were obtained. Specimens were microscopically reviewed by pathology in the CT suite and placed in formalin solution. BioSentry tract sealant system was deployed at the biopsy site, and the biopsy needle was removed. A sterile occlusive dressing was applied to the biopsy site. The patient tolerated the procedure well. An immediate chest xray was ordered, per protocol. A negative biopsy does not exclude malignancy. Further imaging or clinical followup based on patient condition and degree of clinical suspicion for malignancy. Suggest rebiopsy, if biopsy results do not match with clinical scenario. IMPRESSION: 1. CT directed core needle biopsy of the right lower lobe nodule using CT image guidance with image documentation as described. Pathology results are pending. 2. Procedural Sedation protocol utilized with independent monitoring by the department nurse. Procedures Radiology Radiology US Procedures: [id number] Thoracentesis
--- NOTE | 2023-06-30 12:15 | RAD_ITS ---
STUDY: X-RAY CHEST REASON FOR EXAM: Female, 82 years old. 2 hours post lung biopsy -- 2 hours post lung biopsy TECHNIQUE: Inspiration expiration views. COMPARISON: Comparison is made with prior study done earlier today. FINDINGS: There is no evidence of pneumothorax on the two-hour post right lung biopsy radiographs. RAD/Chest Insp/Exp 2 View IMPRESSION: No evidence of pneumothorax on the two-hour post right lung biopsy radiographs. Electronically Signed: Miky Carter MD at 12:28 EDT ,
== END 2023-06-30 23:59 | disposition home or self-care (01) ==
PROVIDERS: Nurse Practitioner Acute Care; PCP Family Medicine; Referring Provider Family Medicine; Visit Provider Family Medicine
DX: Z01.818 Encounter for other preprocedural examination (principal); R91.8 Other nonspecific abnormal finding of lung field
CPT/HCPCS: 32408; 36415; 71046; 77012; 85049; 85610; 85730; 88172; 88305; 88313; 99156; J7050; A4216; C2613

== ENCOUNTER → 2023-10-13 | Outpatient (CLI) | payer MEDICARE, SELFPAY ==
[2023-10-13 15:24] LABS: Absolute Lymphocyte Count 1.31 X10^3/uL (0.83-4.51); Basophil# 0.02 X10^3/uL; Basophil% 0.4 % (0-1); Eosinophil# 0.09 X10^3/uL; Eosinophils% 1.8 % (0-5); Hematocrit 37.7 % (37-47); Hemoglobin 11.9 g/dL (12.0-15.0); Lymphocyte # 1.31 X10^3/ul (0.83-4.51); Lymphocyte % 26.8 % (19-41); Mean Corp Hgb Conc 31.6 g/dL (32-36); Mean Corpuscular Hgb 29.2 pg (27.0-32.0); Mean Corpuscular Volume 92.4 fL (81-99); Mean Platelet Vol. 11.1 fl (6.2-12.0); Monocyte# 0.41 X10^3/uL; Monocyte% 8.4 % (0-10); NRBC Flagged by Analyzer 0 % (0-5); Neutrophil # 3.04 X10^3/uL (2.7-7.7); Neutrophil % 62.2 % (47-70); Platelet Count 285 K/mm3 (150-450); Red Blood Count 4.08 M/mm3 (4.2-5.4); White Blood Count 4.9 K/mm3 (4.4-11.0)
[2023-10-13 16:05] LABS: ALB/GLOB Ratio 0.9 RATIO (0.9-2.4); AST(SGOT) 18 U/L (15-37); Alanine Aminotransfer ALT/SGPT 20 U/L (13-56); Albumin, Serum 3.3 g/dL (3.2-5.0); Alkaline Phosphatase 97 U/L (45-117); Anion Gap 6 (5-15); BUN 18 mg/dL (7-18); BUN/Creat Ratio 20.7 RATIO (10-20); Calcium,Total 9.1 mg/dL (8.5-10.1); Chloride 108 mmol/L (98-107); Cholesterol 171 mg/dL (200); Creatinine, Serum 0.87 mg/dL (0.55-1.02); EST Glomerular Filtration Rate 66 mL/min (>60); Est Glom Filt Rate - Afr Amer 80 mL/min (>60); Globulin 3.5 g/dL (2.2-4.2); Glucose 98 mg/dL (74-106); High Density Lipoprotein 88 mg/dL; Potassium 3.9 mmol/L (3.5-5.1); Protein, Total 6.8 g/dL (6.4-8.2); Sodium Level 141 mmol/L (136-145); Triglycerides 76 mg/dL; Very Low Density Lipoprotein 15 mg/dL (5-40)
== END | disposition home or self-care (01) ==
LOC: BFHLAB 13:17
PROVIDERS: PCP Family Medicine; Referring Provider Family Medicine; Visit Provider Family Medicine
DX: I10 Essential (primary) hypertension (principal); E78.5 Hyperlipidemia, unspecified
CPT/HCPCS: 36415; 80053; 80061; 85025

== ENCOUNTER → 2023-10-29 | Outpatient (CLI) | payer MEDICARE, SELFPAY ==
--- NOTE | 2023-10-29 07:34 | CT_ITS ---
STUDY: CT CHEST WITHOUT CONTRAST REASON FOR EXAM: Female, 83 years old. NODULES RADIATION DOSAGE (If Supplied By Facility): CTDIvol = ( 9.87 ) mGy, DLP = ( 357.72 ) mGycm TECHNIQUE: Transaxial imaging was performed without the administration of intravenous contrast material. Multiplanar coronal and sagittal images were reformatted.
== END | disposition home or self-care (01) ==
LOC: CT 07:33
PROVIDERS: PCP Family Medicine; Referring Provider Family Medicine; Visit Provider Family Medicine
DX: R91.8 Other nonspecific abnormal finding of lung field (principal)
CPT/HCPCS: 71250

== ENCOUNTER → 2024-04-15 | Outpatient (CLI) | payer MEDICARE, SELFPAY ==
[2024-04-15 12:22] LABS: Absolute Lymphocyte Count 1.23 X10^3/uL (0.83-4.51); Absolute Neutrophil Count 2.8 X10^3/uL (2.0-7.7); Basophil# 0.03 X10^3/uL; Basophil% 0.6 % (0-1); Eosinophil# 0.11 X10^3/uL; Eosinophils% 2.3 % (0-5); Hematocrit 37.6 % (37-47); Hemoglobin 12.1 g/dL (12.0-15.0); Lymphocyte # 1.23 X10^3/ul (0.83-4.51); Lymphocyte % 26.1 % (19-41); Mean Corp Hgb Conc 32.2 g/dL (32-36); Mean Corpuscular Hgb 29.2 pg (27.0-32.0); Mean Corpuscular Volume 90.6 fL (81-99); Mean Platelet Vol. 10.7 fl (6.2-12.0); Monocyte# 0.53 X10^3/uL; Monocyte% 11.3 % (0-10); NRBC Flagged by Analyzer 0 % (0-5); Neutrophil % 59.5 % (47-70); Platelet Count 271 K/mm3 (150-450); RBC Distribution Width CV 12.8 % (11.6-14.6); RBC Distribution Width SD 42.2 fl (35.1-43.9); Red Blood Count 4.15 M/mm3 (4.2-5.4); White Blood Count 4.7 K/mm3 (4.4-11.0)
[2024-04-15 12:37] LABS: ALB/GLOB Ratio 1.1 RATIO (0.9-2.4); AST(SGOT) 18 U/L (15-37); Alanine Aminotransfer ALT/SGPT 21 U/L (13-56); Albumin, Serum 3.5 g/dL (3.2-5.0); Alkaline Phosphatase 93 U/L (45-117); Anion Gap 3 (5-15); BUN 20 mg/dL (7-18); BUN/Creat Ratio 23.3 RATIO (10-20); Calcium,Total 9.4 mg/dL (8.5-10.1); Chloride 106 mmol/L (98-107); Cholesterol 177 mg/dL (200); Creatinine, Serum 0.86 mg/dL (0.55-1.02); EST Glomerular Filtration Rate 67 mL/min (>60); Est Glom Filt Rate - Afr Amer 81 mL/min (>60); Globulin 3.3 g/dL (2.2-4.2); Glucose 91 mg/dL (74-106); High Density Lipoprotein 97 mg/dL; Potassium 3.8 mmol/L (3.5-5.1); Protein, Total 6.8 g/dL (6.4-8.2); Sodium Level 140 mmol/L (136-145); Triglycerides 63 mg/dL; Very Low Density Lipoprotein 13 mg/dL (5-40)
== END | disposition home or self-care (01) ==
PROVIDERS: PCP Family Medicine; Referring Provider Family Medicine; Visit Provider Family Medicine
DX: Z00.00 Encounter for general adult medical examination without abnormal findings (principal); I10 Essential (primary) hypertension; E78.5 Hyperlipidemia, unspecified; M85.80 Other specified disorders of bone density and structure, unspecified site
CPT/HCPCS: 36415; 80053; 80061; 85025

== ENCOUNTER → 2024-11-04 | Outpatient (CLI) | payer MEDICARE, SELFPAY ==
[2024-11-04 12:37] LABS: Hematocrit 37.3 % (37-47); Hemoglobin 12.1 g/dL (12.0-15.0); Immature Granulocytes Count 0.010 X10^3/uL (0.0-0.0); Mean Corp Hgb Conc 32.4 g/dL (32-36); Mean Corpuscular Volume 91.2 fL (81-99); Mean Platelet Vol. 11.0 fl (6.2-12.0); NRBC Flagged by Analyzer 0 % (0-5); Platelet Count 246 K/mm3 (150-450); RBC Distribution Width CV 13.6 % (11.6-14.6); RBC Distribution Width SD 46.0 fl (35.1-43.9); Red Blood Count 4.09 M/mm3 (4.2-5.4); White Blood Count 4.4 K/mm3 (4.4-11.0)
[2024-11-04 12:58] LABS: AST(SGOT) 24 U/L (<=31); Alanine Aminotransfer ALT/SGPT 13 U/L (<=34); Albumin, Serum 4.1 g/dL (3.4-4.8); Alkaline Phosphatase 84 U/L (35-104); Anion Gap 12 (5-15); BUN 23 mg/dL (4-19); BUN/Creat Ratio 20.1 RATIO (10-20); Calcium,Total 9.2 mg/dL (7.6-11.0); Carbon Dioxide 23.6 mmol/L (21.0-32.0); Chloride 103 mmol/L (98-108); Globulin 2.5 g/dL (2.2-4.2); Glucose 139 mg/dL (70-99); Potassium 4.0 mmol/L (3.3-5.1)
== END | disposition home or self-care (01) ==
LOC: BFHLAB 09:52
PROVIDERS: PCP Family Medicine; Visit Provider Family Medicine
DX: I10 Essential (primary) hypertension (principal); I63.512 Cerebral infarction due to unspecified occlusion or stenosis of left middle cerebral artery; E78.5 Hyperlipidemia, unspecified
CPT/HCPCS: 36415; 80053; 85025

== ENCOUNTER → 2025-04-04 | Outpatient (CLI) | payer MEDICARE, SELFPAY ==
[2025-04-04 12:03] LABS: Hematocrit 34.2 % (37-47); Hemoglobin 11.3 g/dL (12.0-15.0); Immature Granulocytes Count 0.010 X10^3/uL (0.0-0.0); Mean Corp Hgb Conc 33.0 g/dL (32-36); Mean Corpuscular Volume 89.8 fL (81-99); Mean Platelet Vol. 10.5 fl (6.2-12.0); NRBC Flagged by Analyzer 0 % (0-5); Platelet Count 277 K/mm3 (150-450); RBC Distribution Width CV 13.0 % (11.6-14.6); RBC Distribution Width SD 42.5 fl (35.1-43.9); Red Blood Count 3.81 M/mm3 (4.2-5.4); White Blood Count 4.5 K/mm3 (4.4-11.0)
[2025-04-04 13:08] LABS: AST(SGOT) 22 U/L (<=31); Alanine Aminotransfer ALT/SGPT 14 U/L (<=34); Albumin, Serum 4.0 g/dL (3.4-4.8); Alkaline Phosphatase 88 U/L (35-104); Anion Gap 9 (5-15); BUN 23 mg/dL (4-19); BUN/Creat Ratio 24.4 RATIO (10-20); Calcium,Total 9.5 mg/dL (7.6-11.0); Carbon Dioxide 28.4 mmol/L (21.0-32.0); Chloride 104 mmol/L (98-108); Cholesterol 183 mg/dL (<=200); Globulin 2.6 g/dL (2.2-4.2); Glucose 95 mg/dL (70-99); Low Density Lipoprotein Calc. 77 mg/dL; Potassium 4.5 mmol/L (3.3-5.1); Triglycerides 63 mg/dL; Very Low Density Lipoprotein 13 mg/dL (5-40); cholesterol:hdl ratio screen 1.96
== END | disposition home or self-care (01) ==
LOC: BFHLAB 09:41
PROVIDERS: PCP Family Medicine; Visit Provider Family Medicine
DX: Z00.00 Encounter for general adult medical examination without abnormal findings (principal); I10 Essential (primary) hypertension; E78.5 Hyperlipidemia, unspecified; M85.80 Other specified disorders of bone density and structure, unspecified site
CPT/HCPCS: 36415; 80053; 80061; 85025